=== PATIENT | male | born 1935 | race Caucasian/White ===

== ENCOUNTER 2016-07-17 14:48 | Emergency (ER) | payer OTHER ==
[2016-07-17 15:13] VITALS: O2SAT 91
--- NOTE | 2016-07-17 15:23 | UCPHY ---
H & P Patient Type: Established Chief Complaint Nursing Narrative: c/o Prod. Cough x 2 wks HPI/ROS: HPI CHIEF COMPLAINT: Cough, possible pneumonia HISTORY OF PRESENT ILLNESS: This patient very pleasant 81-year-old male, significant past medical history for hyperlipidemia, prostatectomy, presents urgent care with 3-4 days of worsening cough, productive in nature today with white sputum. No blood. Denies chest pain, shortness of breath, fever, vomiting, nausea, diarrhea. States he decided come to the urgent care to get checked out as he had productive white sputum. He initially thought it was reflux or postnasal drip. Otherwise he has no complaints. No chest pain. Past Medical History: Hyperlipidemia, diet-controlled diabetes Past Surgical History: Prostatectomy Social History: denies drugs alcohol tobacco products, lives in [facility] Family History: Noncontributory ROS REVIEW OF SYSTEMS: A comprehensive 10 point review of systems is otherwise negative aside from elements mentioned in the history of present illness. Exam Constitutional appears well nontoxic triage nursing summary reviewed, vital signs reviewed, awake/alert. Noted pulse ox 91% Eyes normal conjunctivae and sclera, EOMI, PERRLA. HENT normal inspection, atraumatic, moist mucus membranes, no epistaxis, neck supple/ no meningismus, no raccoon eyes. Respiratory normal left breath sounds, right breath sounds rhonchi present midlung field, no respiratory distress, no wheezing. Cardiovascular rate normal, regular rhythm, no murmur, no edema, distal pulses normal. Gastrointestinal soft, non-tender, no rebound, no guarding, normal bowel sounds, no distension, no pulsatile mass. Genitourinary no CVA tenderness. Musculoskeletal no midline vertebral tenderness, full range of motion, no calf swelling, no tenderness of extremities, no meningismus, good pulses, neurovascularly intact. Skin pink, warm, & dry, no rash, skin atraumatic. Neurologic awake, alert and oriented x 3, AAOx3, moves all 4 extremities equally, motor intact, sensory intact, CN II-XII intact, normal cerebellar, normal vision, normal speech. Psychiatric normal mood/affect. Heme/Lymph/Immune no lymphadenopathy. Differential Diagnosis: Includes but is not limited to in a particular order, bronchitis, viral pneumonia, bacterial pneumonia, pneumothorax Medical Decision Making: Plan for this patient chest x-ray two view to visualize lung [place] rule out pneumonia, DuoNeb breathing treatment. Re-evaluation: 1557: re-examination this patient appears well nontoxic no acute distress. Does feel better after DuoNeb breathing treatment. Two-view chest x-ray shows haziness right lower lobe probably early right lower lobe pneumonia. ED x-ray chest two view: Haziness right lower lobe. Image interpreted myself. Concerning for early pneumonia. 1558; patient be started on albuterol inhaler, guaifenesin, and azithromycin. 1st dose given in the Urgent Care. Prescription for medications. He understands strict return precautions return to the urgent care or emergency room if develops worsening fever, shortness of breath, vomiting does not feel well. Follow up with his primary care doctor 48 hours. Source: Patient - Personal History Current Tetanus Diphtheria and Acellular Pertussis (TDAP): Yes - Medical/Surgical History Hx Asthma: No Hx Chronic Respiratory Disease: No Hx Diabetes: Yes Hx Cardiac Disease: No Hx Renal Disease: No Hx Cirrhosis: No Hx Alcoholism: No Hx HIV/AIDS: No Hx Splenectomy or Spleen Trauma: No Other PMH: DIABETES, SKIN CA, PROSTATECTOMY - Family History Significant Family History: No pertinent family hx - Social History Smoking Status: Never smoked Constitutional: Initial Vital Signs Temperature (C) 37.5 C 07/17/16 15:11 Heart Rate 61 07/17/16 15:11 Respiratory Rate 18 07/17/16 15:11 Blood Pressure 149/74 H 07/17/16 15:11 O2 Sat (%) 91 L 07/17/16 15:11 O2 Delivery Mode Room Air Allergies/Adverse Reactions: No Known Allergies Allergy (Verified 11/02/15 07:22) Home Medications: Medication Instructions Recorded Aspirin [Aspirin 81mg] 81 mg PO DAILY 12/31/10 Rosuvastatin Calcium [Crestor] 5 mg PO 12/31/10 Herbals/Supplements -Info Only 01/10/15 Albuterol [Proventil Inhaler HFA 1 - 2 puffs IH Q4H #1 mdi 07/17/16 (*)] Dexamethasone [Decadron 4 MG (*)] 4 mg PO DAILY #4 tab 07/17/16 Guaifenesin [Guaifenesin ER] 600 mg PO BID #14 tab.er.12h 07/17/16 Medical Decision Making - Data Points Medications Given: Discontinued Medications Albuterol/Ipratropium (Duoneb) 3 ml IH EDNOW ONE Stop: 07/17/16 15:27 Last Admin: 07/17/16 15:47 Dose: 3 ml Departure - Departure Disposition: Home, Routine, Self-Care Clinical Impression: Bronchitis Pneumonia Qualifiers: Pneumonia type: due to unspecified organism Laterality: right Lung location: lower lobe of lung Qualified Code(s): J18.1 - Lobar pneumonia, unspecified organism Condition: Good Instructions: Acute Bronchitis (ED), Bacterial Pneumonia (ED) Additional Instructions: 1. Patient drink lots of fluids stay well-hydrated 2. return to the urgent care or emergency room if you have worsening shortness of breath, high fever, vomiting or you do not feel well. 3.Please follow up with her primary care doctor next 24-48 hours. Prescriptions: Albuterol [Proventil Inhaler HFA (*)] 1 - 2 puffs IH Q4H #1 mdi Dexamethasone [Decadron 4 MG (*)] 4 mg PO DAILY #4 tab Guaifenesin [Guaifenesin ER] 600 mg PO BID #14 tab.er.12h - PQRS PQRS Measurement: 134: Depression screening and followup, PRIME MD-PHQ2 (12 years and older) Over the last 2 weeks, how often have you been bothered by any of the following problems? 1. Feeling down, depressed, or hopeless? 2. Little interest or pleasure in doing things? Patient answered no to both 1 and 2 130: Documentation of medications. Reviewed all patient medications, doses, route and frequency. 226: Do you smoke? No. 47: 65 and older: Advanced care planning. Patient designates surrogate decision maker as Spouse 51: 18 years old and older with diagnosis of COPD, spirometry performance. Patient has no history of COPD 52: 18 years old and older with COPD and symptoms of COPD or FEV1<60% predicted prescribed a B Agonist. Spirometry not performed; equipment not available.
[2016-07-17] MEDS ORDERED: IPRATROPIUM/ALBUTEROL 3 ML DEYVIAL IH ONE (15:26)
[2016-07-17] MEDS ORDERED: AZITHROMYCIN 250 MG TAB PO ONE (15:59)
[2016-07-17 17:38] VITALS: BP 142/72; PULSE 64; RESP 14; TEMP 99
== END 2016-07-17 16:50 | disposition home or self-care (01) ==
LOC: CED 14:48
DX: J18.1 Lobar pneumonia, unspecified organism (principal); E11.9 Type 2 diabetes mellitus without complications; E78.5 Hyperlipidemia, unspecified; Z90.79 Acquired absence of other genital organ(s)
CPT/HCPCS: 71020; G0463; 99214-PO